=== PATIENT | male | born 2000 | race Caucasian/White ===

== ENCOUNTER 2024-12-25 20:45 | Emergency (ER) | payer SELFPAY ==
[2024-12-25] MEDS ORDERED: Amoxicillin/Clavulanate K 875-125 MG Tab PO ONE (22:32)
[2024-12-25] MEDS ORDERED: Diphtheria,Pertussis(Acell),Tetanus Vaccine 0.5 ML Syringe IM ONE (22:32)
[2024-12-25] MEDS ORDERED: Acetaminophen/oxyCODONE 325-10 MG Tab PO ONE (22:33)
[2024-12-25] MEDS ORDERED: Lidocaine 1% 10 ML MDV INJECT ONE (22:33)
== END 2024-12-25 23:23 | disposition home or self-care (01) ==
LOC: MW.ED 20:45
DX: J18.9 Pneumonia, unspecified organism (principal); Z88.8 Allergy status to other drugs, medicaments and biological substances
CPT/HCPCS: 99282; 99283